=== PATIENT | male | born 1985 ===

== ENCOUNTER 2018-11-22 02:54 | Emergency (ER) | payer SELFPAY ==
[2018-11-22] MEDS ORDERED: ASPIRIN PO ONE (03:43)
--- NOTE | 2018-11-22 04:08 | XRay Report ---
FINAL REPORT EXAM: XR CHEST ROUTINE 2V HISTORY: Chest pain TECHNIQUE: PA and lateral views of the chest were submitted. FINDINGS: The heart size and mediastinum appear normal. The vascularity appears normal. The lungs are clear. Th e bones and soft tissues appear normal. IMPRESSION: Normal chest.
[2018-11-22 04:28] LABS: Basophils # (Auto) 0.1 K/mm3 (0.0-0.1); Basophils % (Auto) 1.2 % (0.0-1.8); Eosinophils # (Auto) 0.1 K/mm3 (0.0-0.4); Eosinophils % (Auto) 1.5 % (0.0-4.3); Hematocrit 45.6 % (35.5-45.6); Hemoglobin 15.1 gm/dl (11.8-15.2); Lymphocytes # (Auto) 2.3 K/mm3 (1.2-5.4); Lymphocytes % (Auto) 39.8 % (13.4-35.0); Mean Corpuscular HGB Conc 33 % (32-34); Mean Corpuscular Volume 82 fl (84-94); Monocytes # (Auto) 0.4 K/mm3 (0.0-0.8); Monocytes % (Auto) 7.1 % (0.0-7.3); Platelet Count 315 K/mm3 (140-440); Red Blood Count 5.55 M/mm3 (3.65-5.03); Red Cell Distribution Width 13.6 % (13.2-15.2)
[2018-11-22 04:51] LABS: BUN/Creatinine Ratio 10; Blood Urea Nitrogen 9 mg/dL (9-20); Calcium 9.2 mg/dL (8.4-10.2); Hemolysis Index 6
--- NOTE | 2018-11-22 08:42 | Emergency Department Report ---
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 He states he's been under a lot of stress lately. A few months ago he suffered with appendicitis. He states he occasionally has abdominal pain but today he comes in for evaluation of chest pain which has resolved. He woke up at about 2 in the morning with a pproximately 5 minutes of migrating chest pain from the right to the substernal to the left area in his chest. It was not radiating. It did not go down his arms. It was moderate and sharp and nonpleuritic. He denied shortness of breath sweating nausea or vomiting. He has been asymptomatic after these five- minute episodes. He states that he occasionally has chest pain like this but it usually doesn't last as long. He personally thinks that the pain may be stress related. MD Complaint: chest pain -: Gradual Onset: during rest Pain Location: substernal, left chest, right chest Pain Radiation: none Severity: moderate Quality: sharp Consistency: now resolved Improves With: nothing Worsens With: nothing re: denies: nausea, vomting, diaphoresis, dyspnea, sense of impending doom Other Symptoms: denies: cough, fever, syncope, rash, acid taste in mouth, leg swelling Treatments Prior to Arrival: none - Related Data Allergies Allergy/AdvReac Type Severity Reaction Status Date / Time No Known Allergies Allergy Unverified 11/22/18 03:38 Heart Score - HEART Score History: Slightly suspicious EKG: Normal Age: < 45 Risk factors: No known risk factors Troponin: < normal limit HEART Score: 0 - Critical Actions Critical Actions: 0-3 pts:0.9-1.7%risk of adverse cardiac event.Candidate for discharge ED Review of Systems ROS: Stated complaint: CHEST PAIN Other details as noted in HPI Constitutional: denies: chills, fever Eyes: denies: eye pain, eye discharge, vision change ENT: denies: ear pain, throat pain Respiratory: denies: cough, shortness of breath, wheezing Cardiovascular: chest pain. denies: palpitations Endocrine: no symptoms reported Gastrointestinal: abdominal pain (occasionally). denies: nausea, diarrhea Genitourinary: denies: urgency, dysuria Musculoskeletal: denies: back pain, joint swelling, arthralgia Skin: denies: rash, lesions Neurological: denies: headache, weakness, paresthesias Psychiatric: as per HPI. denies: anxiety, depression Hematological/Lymphatic: denies: easy bleeding, easy bruising ED Past Medical Hx - Surgical History Additional Surgical History: Appendectomy ED Physical Exam - General Limitations: No Limitations General appearance: alert, in no apparent distress - Head Head exam: Present: atraumatic, normocephalic - Eye Eye exam: Present: normal appearance - ENT ENT exam: Present: mucous membranes moist, other (poor dentition) - Neck Neck exam: Present: normal inspection. Absent: tenderness, meningismus - Respiratory Respiratory exam: Present: normal lung sounds bilaterally. Absent: respiratory distress - Cardiovascular Cardiovascular Exam: Present: regular rate, normal rhythm. Absent: systolic murmur, diastolic murmur, rubs, gallop - GI/Abdominal GI/Abdominal exam: Present: soft, normal bowel sounds. Absent: distended, tenderness, guarding, rebound, rigid - Rectal Rectal exam: Present: deferred - Extremities Exam Extremities exam: Present: normal inspection, normal capillary refill. Absent: calf tenderness - Back Exam Back exam: Present: normal inspection - Neurological Exam Neurological exam: Present: alert, oriented X3, CN II-XII intact. Absent: motor sensory deficit - Psychiatric Psychiatric exam: Present: normal affect, normal mood - Skin Skin exam: Present: warm, dry, intact, normal color. Absent: rash ED Course Vital Signs 11/22/18 11/22/18 11/22/18 03:03 08:33 08:43 Temperature 97.2 F L 98.0 F Pulse Rate 78 72 91 H Respiratory 18 12 14 Rate Blood Pressure 125/80 108/74 O2 Sat by Pulse 98 91 Oximetry 11/22/18 11/22/18 11/22/18 08:45 09:00 09:30 Temperature Pulse Rate 58 L 58 L 74 Respiratory 14 14 18 Rate Blood Pressure 123/75 118/75 113/76 O2 Sat by Pulse 97 98 Oximetry 11/22/18 11/22/18 10:00 10:30 Temperature Pulse Rate Respiratory 17 15 Rate Blood Pressure 116/77 114/66 O2 Sat by Pulse 98 96 Oximetry - Reevaluation(s) Reevaluation #1: Remained asymptomatic in the emergency department. 11/22/18 10:37 JOHN score - John Score Age > 65: (0) No Aspirin use within the Past 7 Days: (0) No 3 or more CAD Risk Factors: (0) No 2 or more Angina events in past 24 hrs: (0) No Known CAD with more than 50% Stenosis: (0) No Elevated Cardiac Markers: (0) No ST Deviation Greater than 0.5mm: (0) No JOHN Score: 0 ED Medical Decision Making - Lab Data Result diagrams: 11/22/18 04:08 11/22/18 04:08 Laboratory Results - last 24 hr 11/22/18 11/22/18 11/22/18 04:08 04:08 06:52 WBC 5.8 RBC 5.55 H Hgb 15.1 Hct 45.6 MCV 82 L MCH 27 L MCHC 33 RDW 13.6 Plt Count 315 Lymph % (Auto) 39.8 H [place] % (Auto) 7.1 Eos % (Auto) 1.5 Baso % (Auto) 1.2 Lymph # 2.3 [place] # 0.4 Eos # 0.1 Baso # 0.1 Seg Neutrophils % 50.4 Seg Neutrophils # 2.9 Sodium 141 Potassium 4.0 Chloride 100.6 Carbon Dioxide 27 Anion Gap 17 BUN 9 Creatinine 0.9 Estimated GFR > 60 BUN/Creatinine Ratio 10 Glucose 113 H Calcium 9.2 Troponin T < 0.010 < 0.010 - EKG Data -: EKG Interpreted by Nj EKG shows normal: sinus rhythm, axis, intervals, QRS complexes, ST-T waves Rate: normal - EKG Data Interpretation: normal EKG - Radiology Data Radiology results: report reviewed (normal chest x-ray) Critical care attestation.: If time is entered above; I have spent that time in minutes in the direct care of this critically ill patient, excluding procedure time. ED Disposition Clinical Impression: Atypical chest pain Disposition: DC-01 TO HOME OR SELFCARE Is pt being admited?: No Does the pt Need Aspirin: No Condition: Stable Instructions: Chest Pain (ED) Additional Instructions: Return any recurrent chest pain for reevaluation. Further evaluation the primary care setting is recommended. 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 Referrals: [facility] MD LUTHER [Primary Care Provider] - 2-3 Days ALMA ROSA CALDERON MD [Staff Physician] - 3-5 Days Time of Disposition: 10:38
[2018-11-22 09:37] LABS: INR 0.92 (0.87-1.13)
[2018-11-22 09:38] LABS: Partial Thromboplastin Time 28.1 Sec. (24.2-36.6)
[2018-11-22 10:32] VITALS: BP 114/66
== END 2018-11-22 11:10 | disposition home or self-care (01) ==
LOC: ED 02:54
DX: R07.2 Precordial pain (principal); Z90.49 Acquired absence of other specified parts of digestive tract
CPT/HCPCS: 36415; 71046; 80048; 84484; 85025; 85379; 85610; 85730; 93005; 93010; 99284

== ENCOUNTER 2020-12-07 21:58 | Observation (INO) | payer SELFPAY ==
--- NOTE | 2020-12-08 00:44 | Event Note ---
ED Screening Note Date of service: 12/08/20 Time: 00:43 ED Screening Note: Patient complains of sudden onset of mid abdominal pain today History of appendectomy per patient States some nausea without vomiting worse stool changes No fever per patient Denies alcohol abuse This initial assessment/diagnostic orders/clinical plan/treatment(s) is/are subject to change based on patients health status, clinical progression and re- assessment by fellow clinical providers in the ED. Further treatment and workup at subsequent clinical providers discretion. Patient/guardian urged not to elope from the ED as their condition may be serious if not clinically assessed and managed. Initial orders include: Labs CT
[2020-12-08 01:01] LABS: Bilirubin,Urine NEG (Negative); Blood,Urine SM (Negative); Color,Urine Yellow (Yellow); Mucus,Urine FEW /HPF; Protein,Urine <15 mg/dL mg/dL (Negative); Urobilinogen,Urine < 2.0 mg/dL (<2.0); WBC,Urine < 1.0 /HPF (0.0-6.0)
[2020-12-08 01:01] LABS: Basophils % (Auto) 0.3 % (0.0-1.8); Eosinophils # (Auto) 0.1 K/mm3 (0.0-0.4); Eosinophils % (Auto) 0.8 % (0.0-4.3); Hematocrit 45.3 % (35.5-45.6); Hemoglobin 15.2 gm/dl (11.8-15.2); Lymphocytes # (Auto) 0.7 K/mm3 (1.2-5.4); Lymphocytes % (Auto) 7.8 % (13.4-35.0); Mean Corpuscular HGB Conc 33 % (32-34); Mean Corpuscular Volume 83 fl (84-94); Monocytes # (Auto) 0.6 K/mm3 (0.0-0.8); Monocytes % (Auto) 6.3 % (0.0-7.3); Platelet Count 273 K/mm3 (140-440); Red Blood Count 5.45 M/mm3 (3.65-5.03); Red Cell Distribution Width 13.9 % (13.2-15.2)
[2020-12-08] MEDS ORDERED: MORPHINE 4 MG/1 ML INJ IV ONE (01:05)
[2020-12-08] MEDS ORDERED: ONDANSETRON 4 MG/2 ML INJ IV ONE (01:05)
--- NOTE | 2020-12-08 01:08 | Emergency Department Report ---
ED Abdominal Pain HPI - General Chief Complaint: Abdominal Pain Stated Complaint: ABD PAIN/CHEST PAIN PUI?: No Time Seen by Provider: 12/08/20 00:08 Source: patient Mode of arrival: Ambulatory Limitations: No Limitations - History of Present Illness Initial Comments: CC: abdominal pain HPI: This is a 35 yo male without significant past medical hx who presents with periumblical LLQ several dull pain. Gradual onset this afternoon. Hurts to move, laugh. He had transient nonspecific chest pain earlier in the day. Hx of appendectomy MD Complaint: abdominal pain -: Gradual, This afternoon Location: periumbilical, LLQ Radiation: none Severity: moderate Severity scale (0 -10): 8 Quality: dull Consistency: colicky Improves With: nothing Worsens With: movement Associated Symptoms: nausea - Related Data Allergies Allergy/AdvReac Type Severity Reaction Status Date / Time No Known Allergies Allergy Unverified 11/22/18 03:38 ED Review of Systems ROS: Stated complaint: ABD PAIN/CHEST PAIN Other details as noted in HPI Comment: All other systems reviewed and negative Constitutional: denies: fever, malaise Respiratory: denies: cough, shortness of breath Gastrointestinal: abdominal pain, nausea. denies: vomiting, diarrhea ED Past Medical Hx - Past Medical History Previous Medical History?: No - Surgical History Past Surgical History?: Yes Hx Appendectomy: Yes Additional Surgical History: Appendectomy - Social History Smoking Status: Never Smoker Substance Use Type: None ED Physical Exam - General Limitations: No Limitations General appearance: alert, in no apparent distress, other (appears uncomfortable, laying in left lateral decubitus position) - Head Head exam: Present: atraumatic, normocephalic - Eye Eye exam: Present: normal appearance - ENT ENT exam: Present: mucous membranes moist - Neck Neck exam: Present: normal inspection - Respiratory Respiratory exam: Present: normal lung sounds bilaterally. Absent: respiratory distress - Cardiovascular Cardiovascular Exam: Present: regular rate, normal rhythm, normal heart sounds. Absent: systolic murmur, diastolic murmur, rubs, gallop - GI/Abdominal GI/Abdominal exam: Present: soft, distended, normal bowel sounds. Absent: tenderness, guarding, rebound - Extremities Exam Extremities exam: Present: normal inspection - Back Exam Back exam: Present: normal inspection - Neurological Exam Neurological exam: Present: alert, oriented X3 - Psychiatric Psychiatric exam: Present: normal affect, normal mood - Skin Skin exam: Present: warm, dry, intact, normal color. Absent: rash ED Course Vital Signs 12/07/20 12/08/20 12/08/20 23:46 01:19 02:51 Temperature 99.4 F Pulse Rate 93 H 84 Respiratory 18 18 16 Rate Blood Pressure 136/77 Blood Pressure 126/85 [Left] O2 Sat by Pulse 100 98 Oximetry ED Medical Decision Making - Lab Data Result diagrams: 12/08/20 00:10 12/08/20 00:10 - Radiology Data Radiology results: report reviewed, image reviewed CT abdomen pelvis w con INDICATION: acute periumbilical/epigastric pain. TECHNIQUE: All CT scans at this location are performed using the following dose modulation technique: Automated exposure control. CONTRAST: Omnipaque 300, 100 cc IV injection. COMPARISON: None available. CT ABDOMEN: Evaluation of the parenchymal organs demonstrates a few low density liver lesions which do not appear to be simple cyst. The largest is at the pacer segment of the right hepatic lobe measuring 1.4 cm (series 2, image 105). The remaining parenchymal organs are unremarkable. Negative for abdominal mass, adenopathy or fluid collection. The stomach and proximal/mid small bowel are distended. The mid/ distal small bowel and colon are normal in caliber. CT PELVIS: Previous appendectomy. Negative for pelvic mass, fluid or inflammation. IMPRESSION: 1. Mid small bowel obstruction. 2. Indeterminate liver lesions. It should be better characterized with multiphase CT as clinically indicated. - Medical Decision Making 1. Small bowel obstruction diagnosed per CT scan. Clinically patient does have distended abdomen. Patient treated with NGT, IV fluid resuscitation. General surgeon Dr. Hobson will see patient this morning. 2. Indeterminate liver lesions on CT scan: Will need outpatient follow-up. Likely hepatic cysts. Critical care attestation.: If time is entered above; I have spent that time in minutes in the direct care of this critically ill patient, excluding procedure time. ED Disposition Clinical Impression: Small bowel obstruction, Liver lesion Disposition: DC- OP ADMIT IP TO THIS HOSP Is pt being admited?: Yes Does the pt Need Aspirin: No Condition: Stable
[2020-12-08 01:23] LABS: Alanine Aminotransferase 19 units/L (7-56); Albumin 4.6 g/dL (3.9-5); BUN/Creatinine Ratio 10; Blood Urea Nitrogen 10 mg/dL (9-20); Calcium 9.2 mg/dL (8.4-10.2); Hemolysis Index 4
--- NOTE | 2020-12-08 02:40 | Cat Scan Report ---
CT abdomen pelvis w con INDICATION: acute periumbilical/epigastric pain. TECHNIQUE: All CT scans at this location are performed using the following dose modulation technique: Automated exposure control. CONTRAST: Omnipaque 300, 100 cc IV injection. COMPARISON: None available. CT ABDOMEN: Evaluation of the parenchymal organs demonstrates a few low density liver lesions which d o not appear to be simple cyst. The largest is at the pacer segment of the right hepatic lobe measuri ng 1.4 cm (series 2, image 105). The remaining parenchymal organs are unremarkable. Negative for abdominal mass, adenopathy or fluid collection. The stomach and proximal/mid small bowel are distended. The mid/distal small bowel and colon are normal in caliber. CT PELVIS: Previous appendectomy. Negative for pelvic mass, fluid or inflammation. IMPRESSION: 1. Mid small bowel obstruction. 2. Indeterminate liver lesions. It should be better characterized with multiphase CT as clinically in dicated. Signer Name: Jordy Lopez MD Signed: 12/08/2020 2:35 AM Workstation Name: [id number]
[2020-12-08] MEDS ORDERED: SODIUM CHLORIDE 0.9% 1000 ML 1,000 ML IV ONE (02:55)
--- NOTE | 2020-12-08 03:29 | History and Physical Report ---
History of Present Illness Date of examination: 12/07/20 Date of admission: 12/07/20 Chief complaint: Small Bowel Obstruction History of present illness: This initial assessment/diagnostic orders/clinical plan/treatment(s) is/are subject to change based on patients health status, clinical progression and re- assessment by fellow clinical providers in the ED. Further treatment and workup at subsequent clinical providers discretion. Patient/guardian urged not to elope from the ED as their condition may be serious if not clinically assessed and managed. ED work up WBC 8.9, hemoglobin 15.2, PLT 273, Glucose 134, Cr 1.0, calcium9.2, potassium 4.2, sodium 141 CT of the abdomen/pelvis Mid small bowel obstruction, Indeterminate liver lesions. Patient seen at bedside at bedside. Alert and oriented times 3. he reports abdominal pain. pain level is 6/10. Patient has mild distention of the abdomen with hypoactive bowel sounds. He admits nausea but denies vomiting. Past History Past Medical History: other (Nausea). denies: hyperthyroidism Past Surgical History: appendectomy Social history: denies: smoking, alcohol abuse (occasional alcohol use) Family history: no significant family history Medications and Allergies Allergies Allergy/AdvReac Type Severity Reaction Status Date / Time No Known Allergies Allergy Unverified 11/22/18 03:38 Active Meds: Active Medications Sodium Chloride (Nacl 0.9% 1000 Ml) 1,000 mls @ 999 mls/hr IV BOLUS ONE Stop: 12/08/20 03:55 Review of Systems Constitutional: no anorexia Ears, nose, mouth and throat: no epistaxis, no bleeding gums Cardiovascular: no dyspnea on exertion Respiratory: no congestion Gastrointestinal: nausea Genitourinary Male: no hematuria Rectal: no hemorrhoids Musculoskeletal: no neck stiffness Integumentary: no pruritis Neurological: head injury Psychiatric: no anxiety attacks Endocrine: no polyphagia Hematologic/Lymphatic: no easy bruising, no easy bleeding Allergic/Immunologic: no urticaria Exam - Constitutional Vitals: Temp Pulse Resp BP Pulse Ox 99.4 F 84 16 126/85 98 12/07/20 23:46 12/08/20 02:51 12/08/20 02:51 12/08/20 02:51 12/08/20 02:51 General appearance: Present: mild distress, well-nourished - EENT Eyes: Present: PERRL. Absent: scleral icterus, conjunctival injection ENT: hearing intact, clear oral mucosa - Neck Neck: Present: supple, normal ROM - Respiratory Respiratory effort: normal Respiratory: bilateral: CTA - Cardiovascular Heart rate: 84 Heart Sounds: Present: S1 & S2. Absent: rub, click - Extremities Extremities: pulses symmetrical, No edema Peripheral Pulses: within normal limits - Abdominal General gastrointestinal: Present: soft, tender, normal bowel sounds Male genitourinary: Present: normal - Integumentary Integumentary: Present: clear, warm, dry - Musculoskeletal Musculoskeletal: gait normal, strength equal bilaterally - Psychiatric Psychiatric: appropriate mood/affect, intact judgment & insight, cooperative - Neurologic Neurologic: CNII-XII intact, moves all extremities - Allied Health Allied health notes reviewed: nursing, PT Results - Labs CBC & Chem 7: 12/08/20 00:10 12/08/20 00:10 Labs: Abnormal lab results 12/08/20 12/08/20 Range/Units 00:10 00:10 RBC 5.45 H (3.65-5.03) M/mm3 MCV 83 L (84-94) fl Lymph % (Auto) 7.8 L (13.4-35.0) % Lymph # (Auto) 0.7 L (1.2-5.4) K/mm3 Seg Neutrophils % 84.8 H (40.0-70.0) % Glucose 134 H (75-100) mg/dL Assessment and Plan - Patient Problems (1) Small bowel obstruction Current Visit: Yes Status: Acute Plan to address problem: CT abdomen shows mid small bowel obstruction Continue n.p.o. status Anti emetic PRN Will place NGT tube if needed-Pt denies vomiting but admits nausea General surgeon consult will follow up with plan of care (2) Liver lesion Current Visit: Yes Status: Acute Plan to address problem: Incidental finding on CT of the abdomen ? cause -Liver cyst/mass Liver enzymes within normal limits Patient advised to follow-up with his primary pcp for possible repeat Ct Scan (3) DVT prophylaxis Current Visit: Yes Status: Acute Plan to address problem: SCD
[2020-12-08] MEDS ORDERED: METOCLOPRAMIDE 10 MG/2 ML INJ IV PRN (04:14)
[2020-12-08] MEDS ORDERED: ACETAMINOPHEN 325 MG TAB PO PRN (04:14)
[2020-12-08] MEDS ORDERED: ONDANSETRON 4 MG/2 ML INJ IV PRN (04:14)
[2020-12-08] MEDS ORDERED: ALUM-MAG HYDROXIDE-SIMETHICONE 200-200-20MG/5ML ORAL LIQD 30 ML PO PRN (04:14)
[2020-12-08] MEDS ORDERED: MAGNESIUM HYDROXIDE (MOM) ORAL LIQD UDC PO PRN (04:14)
[2020-12-08] MEDS ORDERED: SENNOSIDES 8.6 MG TAB PO PRN (04:14)
[2020-12-08] MEDS ORDERED: traMADol 50 MG TAB PO PRN (04:23)
[2020-12-08] MEDS: traZODone 50 MG TAB PO SCH ×2 (05:09→21:22)
[2020-12-08] MEDS: SODIUM CHLORIDE 0.9% 1000 ML 1,000 ML IV SCH ×2 (05:57→18:49)
--- NOTE | 2020-12-08 10:59 | XRay Report ---
ABDOMEN 3 VIEW(S) INDICATION: CT abdomen and pelvis with contrast performed earlier today. COMPARISON: None available. FINDINGS: Bowel gas pattern: Previously seen gastric distention and small bowel dilatation has significantly im proved. Mild small bowel dilatation remains along the lower abdomen. Free air: None seen. Stones: None seen. Chest: No acute findings. Additional Findings: No additional significant findings. IMPRESSION: Significant interval improvement of the previously described small bowel obstruction. Signer Name: Jeovanny Moncada MD Signed: 12/08/2020 10:55 AM Workstation Name: [id number]
--- NOTE | 2020-12-08 13:52 | Consultation ---
History of Present Illness Consult date: 12/08/20 Reason for consult: abdominal pain Chief complaint: abdominal pain - History of present illness History of present illness: 35 yo M with hx of laparoscopic appendectomy who presented to ER with sudden ons et abdominal pain, sharp. The pain was severe and diffuse but now intermittent, mild, and localized to the left hemiabdomen. He had n/v at home but no vomiting while admitted to hospital. No f/c. He has never had symptoms like this before. He had a BM last night which was small and is passing flatus today. He ate a frozen dinner on the night the symptoms started but states this is a typical dinner for him. No sick contacts. Discussed with ER physician overnight and NGT was ordered. NGT not placed per notes, patient was not vomiting and placement held by admitting provider. Past History Past Medical History: other (Nausea). denies: hyperthyroidism Past Surgical History: appendectomy Social history: denies: smoking, alcohol abuse (occasional alcohol use) Family history: no significant family history Medications and Allergies Allergies Allergy/AdvReac Type Severity Reaction Status Date / Time No Known Allergies Allergy Unverified 11/22/18 03:38 Active Meds: Active Medications Acetaminophen (Acetaminophen 325 Mg Tab) 650 mg PO Q4H PRN PRN Reason: Pain MILD(1-3)/Fever >100.5/PALM Al Hydrox/Mg Hydrox/Simethicone (Alum-Mag Hydroxide-Simethicone [id number]/5ml Oral Liqd 30 Ml) 30 ml PO Q4H PRN PRN Reason: Indigestion Sodium Chloride (Nacl 0.9% 1000 Ml) 1,000 mls @ 75 mls/hr IV DIRECT TAWNY Last Admin: 12/08/20 05:57 Dose: 75 mls/hr Documented by: Magnesium Hydroxide (Magnesium Hydroxide (Mom) Oral Liqd Udc) 30 ml PO Q4H PRN PRN Reason: Constipation Metoclopramide HCl (Metoclopramide 10 Mg/2 Ml Inj) 10 mg IV Q6H PRN PRN Reason: Nausea And Vomiting Ondansetron HCl (Ondansetron 4 Mg/2 Ml Inj) 4 mg IV Q8H PRN PRN Reason: Nausea And Vomiting Senna (Sennosides 8.6 Mg Tab) 8.6 mg PO Q12HR PRN PRN Reason: Constipation Sodium Chloride (Sodium Chloride 0.9% 10 Ml Flush Syringe) 10 ml IV BID [facility] Last Admin: 12/08/20 09:24 Dose: 10 ml Documented by: Sodium Chloride (Sodium Chloride 0.9% 10 Ml Flush Syringe) 10 ml IV PRN PRN PRN Reason: LINE FLUSH Tramadol HCl (Tramadol 50 Mg Tab) 50 mg PO Q4H PRN PRN Reason: Pain, Mild (1-3) Trazodone HCl (Trazodone 50 Mg Tab) 50 mg PO QHS [facility] Last Admin: 12/08/20 05:09 Dose: Not Given Documented by: Review of Systems All systems: negative (10 pt ROS performed and negative except that listed in HPI) Exam Vital Signs Temp Pulse Resp BP Pulse Ox 99.4 F 93 H 18 136/77 100 12/07/20 23:46 12/07/20 23:46 12/07/20 23:46 12/07/20 23:46 12/07/20 23:46 Narrative exam: Gen: AAOx3. NAD ENT: no scleral icterus CV; s1, S2+ Resp: even and unlabored Abd: soft, mildly distended, mild TTP in LLQ. No r/r/g Ext: no c/c/e Results - Labs 12/08/20 00:10 12/08/20 00:10 Abnormal lab results 12/08/20 12/08/20 12/08/20 Range/Units 00:10 00:10 05:49 RBC 5.45 H (3.65-5.03) M/mm3 MCV 83 L (84-94) fl Lymph % (Auto) 7.8 L (13.4-35.0) % Lymph # (Auto) 0.7 L (1.2-5.4) K/mm3 Seg Neutrophils % 84.8 H (40.0-70.0) % Glucose 134 H (75-100) mg/dL Hemoglobin A1c 6.2 H (4-6) % Diabetes panel 12/08/20 12/08/20 Range/Units 00:10 05:49 Sodium 141 (137-145) mmol/L Potassium 4.2 (3.6-5.0) mmol/L Chloride 101.9 (98-107) mmol/L Carbon Dioxide 29 (22-30) mmol/L BUN 10 (9-20) mg/dL Creatinine 1.0 (0.8-1.3) mg/dL Glucose 134 H (75-100) mg/dL Hemoglobin A1c 6.2 H (4-6) % Calcium 9.2 (8.4-10.2) mg/dL AST 15 (5-40) units/L ALT 19 (7-56) units/L Alkaline Phosphatase 83 (35-129) units/L Total Protein 7.3 (6.3-8.2) g/dL Albumin 4.6 (3.9-5) g/dL Calcium panel 12/08/20 Range/Units 00:10 Calcium 9.2 (8.4-10.2) mg/dL Albumin 4.6 (3.9-5) g/dL Pituitary panel 12/08/20 Range/Units 00:10 Sodium 141 (137-145) mmol/L Potassium 4.2 (3.6-5.0) mmol/L Chloride 101.9 (98-107) mmol/L Carbon Dioxide 29 (22-30) mmol/L BUN 10 (9-20) mg/dL Creatinine 1.0 (0.8-1.3) mg/dL Glucose 134 H (75-100) mg/dL Calcium 9.2 (8.4-10.2) mg/dL Adrenal panel 12/08/20 Range/Units 00:10 Sodium 141 (137-145) mmol/L Potassium 4.2 (3.6-5.0) mmol/L Chloride 101.9 (98-107) mmol/L Carbon Dioxide 29 (22-30) mmol/L BUN 10 (9-20) mg/dL Creatinine 1.0 (0.8-1.3) mg/dL Glucose 134 H (75-100) mg/dL Calcium 9.2 (8.4-10.2) mg/dL Total Bilirubin 0.40 (0.1-1.2) mg/dL AST 15 (5-40) units/L ALT 19 (7-56) units/L Alkaline Phosphatase 83 (35-129) units/L Total Protein 7.3 (6.3-8.2) g/dL Albumin 4.6 (3.9-5) g/dL - Imaging Chest x-ray: report reviewed, image reviewed Abdominal x-ray: report reviewed, image reviewed CT scan - abdomen: report reviewed, image reviewed CT scan - pelvis: report reviewed, image reviewed Assessment and Plan 35 yo M with SBO Pt stable. Tolerating clear liquids Obstruction series 12/08/20 - images and report independently reviewed - significant improvement in bowel gas pattern. Air and stool throughout colon. Mildly distended small bowel loops in mid abdomen Plan: 1. CLD -> do not advance 2. IVF 3. OOB/ambulate 4. prn pain control - morphine ordered 5. IF N/V - will make NPO and order NGT placement 6. Dulcolax [place] 7. prn antiemetic - zofran. Reglan discontinued - should not be ordered in SBO 8. Will follow up in am Thank you, please call with questions. Plan discussed in detail with patient.
--- NOTE | 2020-12-08 13:59 | Event Note ---
Date: 12/08/20 Patient seen and evaluated Small bowel obstruction Conservative treatment
[2020-12-08] MEDS ORDERED: MORPHINE 2 MG/1 ML INJ IV PRN (14:18)
[2020-12-08] MEDS: DOCUSATE SODIUM 100 MG CAP PO SCH (21:21)
[2020-12-09 04:36] LABS: Basophils % (Auto) 0.4 % (0.0-1.8); Eosinophils # (Auto) 0.1 K/mm3 (0.0-0.4); Hemoglobin 14.3 gm/dl (11.8-15.2); Lymphocytes # (Auto) 1.4 K/mm3 (1.2-5.4); Lymphocytes % (Auto) 29.1 % (13.4-35.0); Mean Corpuscular HGB Conc 33 % (32-34); Mean Corpuscular Volume 82 fl (84-94); Monocytes # (Auto) 0.5 K/mm3 (0.0-0.8); Monocytes % (Auto) 11.1 % (0.0-7.3); Platelet Count 257 K/mm3 (140-440); Red Blood Count 5.26 M/mm3 (3.65-5.03); Red Cell Distribution Width 13.8 % (13.2-15.2)
[2020-12-09 05:01] LABS: Alanine Aminotransferase 17 units/L (7-56); Albumin 3.8 g/dL (3.9-5); BUN/Creatinine Ratio 4; Blood Urea Nitrogen 4 mg/dL (9-20); Calcium 8.7 mg/dL (8.4-10.2); Hemolysis Index 5
[2020-12-09] MEDS: DOCUSATE SODIUM 100 MG CAP PO SCH (10:49)
--- NOTE | 2020-12-09 13:13 | Progress Note ---
Assessment and Plan 35 yo M with SBO -resolved Plan: 1. Full liquid diet, patient instructed to continue on full liquids for the next 24 hours and then slowly advance to a soft diet. 2. Gentle IVF 3. OOB/ambulate 4. Okay to discharge from surgical standpoint. Discussed with Dr. Christiansen and patient's RN Thank you, please call with questions. Evaluation and treatment of this patient was during the time of the national and state emergency arising from COVID19 coronavirus pandemic. Treatment and procedures performed meet the current and available best practice and guidelines for patient during the COVID pandemic. Subjective Date of service: 12/09/20 Narrative: Patient seen and examined. States he feels much better. Abdominal pain is essentially resolved. No nausea or vomiting. Had a large bowel movement after Dulcolax suppository. Tolerating full liquid diet. Objective Vital Signs - 12hr 12/09/20 12/09/20 12/09/20 05:42 07:45 11:24 Temperature 98.5 F 98.9 F 98.3 F Pulse Rate 68 63 71 Respiratory 18 18 18 Rate Blood Pressure 101/47 105/59 102/52 O2 Sat by Pulse 96 98 97 Oximetry - General physical appearance Narrative Exam: Gen.: Awake, alert, oriented 3. No apparent distress ENT: Trachea midline. No lymphadenopathy. No scleral icterus or conjunctival pallor CV: S1, S2 present Respiratory: No audible wheezes Abdomen: Soft, nondistended, nontender. No rebound, rigidity, guarding Extremities: No clubbing, cyanosis, edema - Labs 12/09/20 04:13 12/09/20 04:13 Diabetes panel 12/09/20 Range/Units 04:13 Sodium 140 (137-145) mmol/L Potassium 3.8 (3.6-5.0) mmol/L Chloride 102.9 (98-107) mmol/L Carbon Dioxide 29 (22-30) mmol/L BUN 4 L (9-20) mg/dL Creatinine 1.0 (0.8-1.3) mg/dL Glucose 111 H (75-100) mg/dL Calcium 8.7 (8.4-10.2) mg/dL AST 14 (5-40) units/L ALT 17 (7-56) units/L Alkaline Phosphatase 74 (35-129) units/L Total Protein 6.5 (6.3-8.2) g/dL Albumin 3.8 L (3.9-5) g/dL Calcium panel 12/09/20 Range/Units 04:13 Calcium 8.7 (8.4-10.2) mg/dL Albumin 3.8 L (3.9-5) g/dL Pituitary panel 12/09/20 Range/Units 04:13 Sodium 140 (137-145) mmol/L Potassium 3.8 (3.6-5.0) mmol/L Chloride 102.9 (98-107) mmol/L Carbon Dioxide 29 (22-30) mmol/L BUN 4 L (9-20) mg/dL Creatinine 1.0 (0.8-1.3) mg/dL Glucose 111 H (75-100) mg/dL Calcium 8.7 (8.4-10.2) mg/dL Adrenal panel 12/09/20 Range/Units 04:13 Sodium 140 (137-145) mmol/L Potassium 3.8 (3.6-5.0) mmol/L Chloride 102.9 (98-107) mmol/L Carbon Dioxide 29 (22-30) mmol/L BUN 4 L (9-20) mg/dL Creatinine 1.0 (0.8-1.3) mg/dL Glucose 111 H (75-100) mg/dL Calcium 8.7 (8.4-10.2) mg/dL Total Bilirubin 0.40 (0.1-1.2) mg/dL AST 14 (5-40) units/L ALT 17 (7-56) units/L Alkaline Phosphatase 74 (35-129) units/L Total Protein 6.5 (6.3-8.2) g/dL Albumin 3.8 L (3.9-5) g/dL
--- NOTE | 2020-12-09 18:44 | Discharge Summary ---
Providers - Providers Date of Admission: 12/08/20 02:58 Date of discharge: 12/09/20 Attending physician: PEPPER THORPE 12/08/20 02:57 Consult to Physician [CONS] Stat Comment: Consulting Provider: CHRISTA YIN Physician Instructions: Reason For Exam: small bowel obstructions Primary care physician: [employer] Hospitalization Condition: Stable Hospital course: This initial assessment/diagnostic orders/clinical plan/treatment(s) is/are subject to change based on patients health status, clinical progression and re- assessment by fellow clinical providers in the ED. Further treatment and workup at subsequent clinical providers discretion. Patient/guardian urged not to elope from the ED as their condition may be serious if not clinically assessed and managed. ED work up WBC 8.9, hemoglobin 15.2, PLT 273, Glucose 134, Cr 1.0, calcium9.2, potassium 4.2, sodium 141 CT of the abdomen/pelvis Mid small bowel obstruction, Indeterminate liver lesions. Patient seen at bedside at bedside. Alert and oriented times 3. he reports abdominal pain. pain level is 6/10. Patient has mild distention of the abdomen with hypoactive bowel sounds. He admits nausea but denies vomiting. - Patient Problems (1) Small bowel obstruction Current Visit: Yes Status: Acute Plan to address problem: Resolved (2) Liver lesion Current Visit: Yes Status: Acute Plan to address problem: Liver cyst (3) DVT prophylaxis Current Visit: Yes Status: Acute Plan to address problem: SCD Disposition: DC-01 TO HOME OR SELFCARE Time spent for discharge: 30 - Discharge Diagnoses (1) Small bowel obstruction Status: Acute Comment: resoved Core Measure Documentation - Palliative Care Palliative Care/ Comfort Measures: Not Applicable - Core Measures Any of the following diagnoses?: none Exam - Constitutional Vitals: Temp Pulse Resp BP Pulse Ox 98.7 F 62 18 111/48 100 12/09/20 16:21 12/09/20 16:21 12/09/20 16:21 12/09/20 16:21 12/09/20 16:21 General appearance: Present: no acute distress, well-nourished - EENT Eyes: Present: PERRL ENT: hearing intact, clear oral mucosa - Neck Neck: Present: supple, normal ROM - Respiratory Respiratory effort: normal Respiratory: bilateral: CTA - Cardiovascular Heart rate: 78 Rhythm: regular Heart Sounds: Present: S1 & S2. Absent: rub, click - Extremities Extremities: pulses symmetrical, No edema Peripheral Pulses: within normal limits - Abdominal General gastrointestinal: Present: soft, non-tender, non-distended, normal bowel sounds Male genitourinary: Present: normal - Integumentary Integumentary: Present: clear, warm, dry - Musculoskeletal Musculoskeletal: gait normal, strength equal bilaterally - Psychiatric Psychiatric: appropriate mood/affect, intact judgment & insight - Neurologic Neurologic: CNII-XII intact, moves all extremities Plan Activity: no restrictions Diet: clear liquids (For 36 hours anmd then advance) Follow up with: PRIMARY CARE, [Primary Care Provider] - 3-5 Days
[2020-12-09 20:21] VITALS: BP 121/70
== END 2020-12-09 20:22 | disposition home or self-care (01) ==
LOC: ED 21:58 → 3B 12-08 02:58
PROVIDERS: ADMIT Internal Medicine Geriatric Medicine; ATTEND Internal Medicine
DX: K56.609 Unspecified intestinal obstruction, unspecified as to partial versus complete obstruction (principal); K76.9 Liver disease, unspecified; Z90.49 Acquired absence of other specified parts of digestive tract; Z79.899 Other long term (current) drug therapy
CPT/HCPCS: 36415; 74022; 74177; 80053; 81001; 83036; 83690; 85025; 96361; 96374; 96375; 99285; G0378; J2270; J2405; J7030; Q9967